=== PATIENT | female | born 1975 | race Caucasian/White ===

== ENCOUNTER 2025-03-23 10:37 | Inpatient (IN) | payer MEDICARE, MEDICAID, SELFPAY ==
--- NOTE | ~2025-03-23 | CT_ITS ---
CT HEAD NON-CONTRAST Clinical History: seizure Comparison: None Technique: Unenhanced axial images skull base to vertex Coronal, sagittal reformats CT images acquired with automatic exposure control for dose reduction DLP: 605 mGy-cm Findings: Sulci, ventricles: Unremarkable. No intracerebral hemorrhage. No evidence acute territorial infarct. No mass effect, midline shift. Bony calvarium intact. Visualized paranasal sinuses: Clear. Mastoid air cells: Clear. IMPRESSION: 1. No acute intracranial findings. Reviewed, dictated and finalized at location R. 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
[2025-03-23 10:46] VITALS: BP 135/95; PULSE 70; RESP 20; TEMP 36.8; O2SAT 100
[2025-03-23 10:51] VITALS: O2SAT 97
--- NOTE | 2025-03-23 11:43 | PC.NURSE ---
This nurse received a call from Shayy Laguerre from [place] about this pt to informed that this pt can not go back to [place] due to not medical stable enough. Pt is homeless. commissions coordinator contacted to assist.
[2025-03-23 11:46] VITALS: BP 133/80; PULSE 76; RESP 20; O2SAT 100
--- NOTE | 2025-03-23 11:49 | ECG_ITS ---
Test Date: 2025-03-23 12:11:52 Measurements Intervals Elbe Rate: 59 P: 48 SC: 152 QRS: 31 QRSD: 101 T: 49 QT: 417 QTc: 415 Interpretive Statements SINUS BRADYCARDIA POSSIBLE LEFT ATRIAL ENLARGEMENT BORDERLINE ECG No previous ECG available for comparison Electronically Signed On 03-23-2025 16:02:22 ANIMAL HANDLER by Randy Colbert D.O.
[2025-03-23 11:59] LABS: Hematocrit 34.6 % (37.0-47.0); Hemoglobin 11.5 g/dL (12.0-15.0); Immature Granulocyte Percent A 0.3 % (0-0.5); Lymphocytes Absolute Auto 2.24 K/mm3 (0.9-3.2); Mean Corpuscular HGB Conc 33.2 g/dl (32-36); Mean Corpuscular Hemoglobin 29.6 pg (26-34); Mean Corpuscular Volume 89.2 fl (80-100); Nucleated Red Blood Cells Absolute Auto 0.000 K/mm3 (0.0-0.012); Nucleated Red Blood Cells Perc 0.0 % (0.0-0.2); Platelet Count Result 340 k/mm3 (150-375); Red Blood Count 3.88 M/mm3 (4.2-5.4); White Blood Count 6.4 K/mm3 (4.5-10.0)
[2025-03-23 12:10] LABS: INR 1.1; Prothrombin Time 14.1 Seconds (11.1-14.7)
[2025-03-23 12:11] LABS: Partial Thromboplastin Time 29.9 Seconds (22.3-36.8)
--- NOTE | 2025-03-23 12:11 | ED.GENADULT ---
HPI - General Adult General Chief complaint: Seizure Stated complaint: seizure Time Seen by Provider: 03/23/25 11:14 History of Present Illness HPI narrative: 49-year-old female presenting to the emergency department for evaluation for having 2 seizures today. Patient reports she typically has seizures every 1-2 weeks. Patient is currently at [facility] for rehabilitation for methamphetamine. Patient reports she also has history alcohol abuse but has not had alcohol in approximately last 10 years. These are not alcohol withdrawal seizures. Patient does take topiramate and carbamazepine. patient reports she has been taking these medications. Patient is new to the area and is moving here from [place]. Patient states that her neurologist is not local. Patient states she has not had recent follow-up with Neurology. Patient is unsure how long her seizures lasted. Patient is alert orientated at time of initial evaluation. Patient reports she is having some chest discomfort. Patient denies any other complaints. Related Data Home Medications ?Medication ?Instructions ?Recorded ?Confirmed ?Last Taken ?Type buspirone 10 mg tablet 10 mg PO BID 03/23/25 03/23/25 03/23/25 08:00 History 10 mg buspirone 5 mg tablet 5 mg PO BID 03/23/25 03/23/25 03/20/25 08:00 History 5 mg carbamazepine (mood stabiliz) 200 400 mg PO Q12H 03/23/25 03/23/25 03/23/25 08:00 History mg capsule,extend release 12 400 mg hr(mood stabilizing) (Equetro) carbamazepine 200 mg 200 mg PO Q12H 03/23/25 03/23/25 03/23/25 History tablet,extended release,12 hr hydroxyzine HCl 25 mg tablet 25 mg PO Q4H PRN anxiety 03/23/25 03/23/25 03/23/25 08:00 History lurasidone 40 mg tablet 40 mg PO DAILY@0800 03/23/25 03/23/25 03/23/25 08:00 History 40 mg melatonin 5 mg capsule 5 mg PO QHS 03/23/25 03/23/25 Unknown History melatonin 5 mg tablet 5 mg PO HS 03/23/25 03/23/25 03/22/25 20:00 History 5 mg multivitamin 1 tablet PO DAILY PRN PATIENT 03/23/25 03/23/25 03/23/25 08:00 History REQUEST 1 tablet nicotine (polacrilex) 4 mg buccal 4 mg buccal Q1H PRN nicotine 03/23/25 03/23/25 03/23/25 08:00 History lozenge cravings 4 mg nicotine 21 mg/24 hr daily 1 patch transdermal DAILY 03/23/25 03/23/25 03/23/25 08:00 History transdermal patch 1 patch prazosin 1 mg capsule 1 mg PO QHS 03/23/25 03/23/25 Unknown History pregabalin 150 mg capsule 150 mg PO Q12H 03/23/25 03/23/25 Unknown History pregabalin 50 mg capsule 50 mg PO BID 03/23/25 03/23/25 03/23/25 08:00 History 50 mg quetiapine 200 mg tablet 200 mg PO QHS 03/23/25 03/23/25 03/22/25 20:00 History 200 mg topiramate 50 mg tablet 50 mg PO BID 03/23/25 03/23/25 03/23/25 08:00 History 50 mg topiramate 50 mg tablet 50 mg PO Q12H 03/23/25 03/23/25 Unknown History Allergies Allergy/AdvReac Type Severity Reaction Status Date / Time No Known Allergies Allergy Verified 03/23/25 17:52 Review of Systems Review of Systems: All systems reviewed & are unremarkable except as noted in HPI and below PMFSH Past Medical History Medical History Methamphetamine abuse Seizure disorder Social History Social History Smoking packs per day: 0.5 Smoking cigarettes per day: 10.0 Years smoked: 24 Smoking pack-years: 12.00 Smoking status: Former smoker Tobacco type: cigarettes and e-cigarettes/vaping Smoking end date: 03/02/25 Additional smoking assessment comments: NICOTINE PATCH Alcohol intake: never Substance use: former Substance use type: amphetamines Other substance usage details: CLEAN FROM METH SINCE 03/02/2025 Last use: 03/02/25 Lack of Transportation: No Lack of Food: Often True Current Housing: I Do Not Have Housing Concerned About Future Housing: No Difficulty Paying Gas/Electric Bills: No Difficulty Paying for Meds: YES Currently Unemployed: No Education: Trade/Vocational Certificate Difficulty w/ Childcare or Family Care: No Spiritual care concerns: Yes (ANXIOUS ABOUT LIFE PROBLEMS) Exam Narrative: APPEARANCE: Well appearing, no pain, no distress, well-nourished. HEAD: normocephalic, atraumatic. EYES: PERRLA/EOMI, conjunctivae clear. NOSE: Normal no drainage EARS:TMS clear with good light reflex. THROAT: Pharynx clear, no exudate. NECK: Supple. No adenopathy, no masses. RESPIRATORY: Airway patent, respirations nonlabored. Clear to auscultation bilaterally, no rales, rhonchi, wheezing. CARDIOVASCULAR: Regular rate and rhythm without murmurs rubs or gallops. ABDOMINAL: Soft, nontender, nondistended, normal bowel sounds MUSCULOSKELETAL: Moves all extremities. Strength/ROM intact, No edema, No calf tenderness. NEURO: Alert. Cranial nerves II through XII intact. Good gait. Good coordination SKIN: Warm, dry. Normal Color PSYCHIATRIC: Normal affect/mood. Course Vital Signs Vital signs: Vital Signs Temperature 98.2 F 03/23/25 10:46 Pulse Rate 70 03/23/25 10:46 Respiratory Rate 20 03/23/25 10:46 Blood Pressure 135/95 H 03/23/25 10:46 Pulse Oximetry 100 03/23/25 10:46 Oxygen Delivery Room Air 03/23/25 10:46 Temperature 98.2 F 03/23/25 10:46 Pulse Rate 63 03/23/25 15:28 Respiratory Rate 16 03/23/25 15:28 Blood Pressure 151/89 H 03/23/25 15:28 Pulse Oximetry 100 03/23/25 15:28 Oxygen Delivery Room Air 03/23/25 10:51 [facility] Narrative Medical decision making narrative: 41-year-old female presents emergency department for evaluation for 2 seizures today. Patient reports he typically has a seizure once weaker for 2 weeks but patient reports he has had 2 seizures today. Patient states she has been taking her medications as directed. Patient does not have a local primary care physician or local neurologist. Patient's workup shows no acute evidence of infection. Patient does sound complaint with her medications. I discussed the case with Neurology and patient will be admitted to the hospitalist. EEG is not available until Tuesday per Neurology. Case was discussed with hospitalist and they were comfortable the plan for admission. Patient was well-appearing at time of admission. Differential Diagnosis Differential Diagnosis: Subdural hematoma, subarachnoid hemorrhage, cephalopathy, medication noncompliance, seizure disorder, urinary tract infection pneumonia Lab Data MDM Lab Attestation statement: I personally reviewed the patient's lab results. 03/23/25 11:52 03/23/25 11:52 Labs: Lab Results 03/23/25 03/23/25 03/23/25 Range/Units 11:48 11:52 12:26 WBC 6.4 (4.5-10.0) K/mm3 RBC 3.88 L (4.2-5.4) M/mm3 Hgb 11.5 L (12.0-15.0) g/dL Hct 34.6 L (37.0-47.0) % MCV 89.2 (80-100) fl MCH 29.6 (26-34) pg MCHC 33.2 (32-36) g/dl RDW 13.8 (11.5-14.5) % Plt Count 340 (150-375) k/mm3 MPV 8.6 (7.4-10.4) fl Immature Gran % (Auto) 0.3 (0-0.5) % Neut % (Auto) 51.2 (45.5-73.1) % Lymph % (Auto) 35.1 (18.3-44.2) % Lassen % (Auto) 10.3 H (2.6-8.5) % Eos % (Auto) 2.3 (0-4.4) % Baso % (Auto) 0.8 (0.2-1.2) % Lymph # (Auto) 2.24 (0.9-3.2) K/mm3 Lassen # (Auto) 0.7 H (0.1-0.6) K/mm3 Eos # (Auto) 0.2 (0-0.3) K/mm3 Baso # (Auto) 0.1 (0.0-0.1) K/mm3 Abs Immat Gran (auto) 0.02 (0.00-0.031) K/mm3 Absolute Neuts (auto) 3.3 (1.3-6.7) K/mm3 Absolute Nucleated RBC 0.000 (0.0-0.012) K/mm3 Nucleated RBC % 0.0 (0.0-0.2) % PT 14.1 (11.1-14.7) Seconds INR 1.1 APTT 29.9 (22.3-36.8) Seconds Sodium 127 L (137-145) mmol/L Potassium 4.5 (3.4-5.0) mmol/L Chloride 98 (98-107) mmol/L Carbon Dioxide 25 (22-30) mmol/L Anion Gap 4 (4-12) mmol/L BUN 13 (7-17) mg/dL Creatinine 0.78 (0.7-1.0) mg/dL Estim Creat Clear Calc 84 ml/min Estimated GFR > 60 (59 - ) Glucose 85 (65-110) mg/dL Lactic Acid 0.8 (0.7-2.0) mmol/L Calcium 8.2 L (8.4-10.2) mg/dL Total Bilirubin 0.3 (0.2-1.3) mg/dL AST 36 (14-36) U/L ALT 25 (6-35) U/L Alkaline Phosphatase 102 (38-126) U/L Troponin I < 0.012 (0.000-0.034) ng/mL Total Protein 7.9 (6.3-8.2) g/dL Albumin 3.8 (3.5-5.1) g/dL Urine Color Yellow (Yellow) Urine Appearance Clear (Clear) Urine pH 7.5 (5.0-9.0) Ur Specific Milburn 1.009 (1.001-1.035) Urine Protein Negative (Negative) mg/dL Urine Glucose (UA) Negative (Negative) mg/dL Urine Ketones Negative (Negative) mg/dL Ur Blood (Man) Negative (Negative) Urine Nitrate Negative (Negative) Urine Bilirubin Negative (Negative) Urine Urobilinogen 0.2 (<2.0) mg/dL Leukocyte Esterase Rfl Trace H (Negative) [place]/UL Urine RBC 0-2 (0-2) /hpf Urine WBC 0-5 (0-3) /hpf Ur Squamous Epith Cells None seen (Few) /hpf Urine Bacteria None seen /hpf Urine Casts 0-2 POC Urine HCG, Qual (Negative) Urine Opiates Screen Negative (Negative) Urine Methadone Screen Negative (Negative) Ur Barbiturates Screen Negative (Negative) Carbamazepine Pending Topiramate Pending Ur Phencyclidine Scrn Negative (Negative) Ur Amphetamine Screen Negative (Negative) U Benzodiazepines Scrn Negative (Negative) Urine Cocaine Screen Negative (Negative) U Cannabinoids Screen Negative (Negative) 03/23/25 Range/Units 12:27 WBC (4.5-10.0) K/mm3 RBC (4.2-5.4) M/mm3 Hgb (12.0-15.0) g/dL Hct (37.0-47.0) % MCV (80-100) fl MCH (26-34) pg MCHC (32-36) g/dl RDW (11.5-14.5) % Plt Count (150-375) k/mm3 MPV (7.4-10.4) fl Immature Gran % (Auto) (0-0.5) % Neut % (Auto) (45.5-73.1) % Lymph % (Auto) (18.3-44.2) % Lassen % (Auto) (2.6-8.5) % Eos % (Auto) (0-4.4) % Baso % (Auto) (0.2-1.2) % Lymph # (Auto) (0.9-3.2) K/mm3 Lassen # (Auto) (0.1-0.6) K/mm3 Eos # (Auto) (0-0.3) K/mm3 Baso # (Auto) (0.0-0.1) K/mm3 Abs Immat Gran (auto) (0.00-0.031) K/mm3 Absolute Neuts (auto) (1.3-6.7) K/mm3 Absolute Nucleated RBC (0.0-0.012) K/mm3 Nucleated RBC % (0.0-0.2) % PT (11.1-14.7) Seconds INR APTT (22.3-36.8) Seconds Sodium (137-145) mmol/L Potassium (3.4-5.0) mmol/L Chloride (98-107) mmol/L Carbon Dioxide (22-30) mmol/L Anion Gap (4-12) mmol/L BUN (7-17) mg/dL Creatinine (0.7-1.0) mg/dL Estim Creat Clear Calc ml/min Estimated GFR (59 - ) Glucose (65-110) mg/dL Lactic Acid (0.7-2.0) mmol/L Calcium (8.4-10.2) mg/dL Total Bilirubin (0.2-1.3) mg/dL AST (14-36) U/L ALT (6-35) U/L Alkaline Phosphatase (38-126) U/L Troponin I (0.000-0.034) ng/mL Total Protein (6.3-8.2) g/dL Albumin (3.5-5.1) g/dL Urine Color (Yellow) Urine Appearance (Clear) Urine pH (5.0-9.0) Ur Specific Milburn (1.001-1.035) Urine Protein (Negative) mg/dL Urine Glucose (UA) (Negative) mg/dL Urine Ketones (Negative) mg/dL Ur Blood (Man) (Negative) Urine Nitrate (Negative) Urine Bilirubin (Negative) Urine Urobilinogen (<2.0) mg/dL Leukocyte Esterase Rfl (Negative) [place]/UL Urine RBC (0-2) /hpf Urine WBC (0-3) /hpf Ur Squamous Epith Cells (Few) /hpf Urine Bacteria /hpf Urine Casts POC Urine HCG, Qual Negative (Negative) Urine Opiates Screen (Negative) Urine Methadone Screen (Negative) Ur Barbiturates Screen (Negative) Carbamazepine Topiramate Ur Phencyclidine Scrn (Negative) Ur Amphetamine Screen (Negative) U Benzodiazepines Scrn (Negative) Urine Cocaine Screen (Negative) U Cannabinoids Screen (Negative) Imaging Data Radiologist's impression: ITS Impressions Head CT 03/23/25 12:08 IMPRESSION: 1. No acute intracranial findings. Discharge Plan Discharge Clinical Impression: Seizure disorder Patient Disposition: Still a Patient Condition: Serious
[2025-03-23 12:16] LABS: Alanine Aminotransferase 25 U/L (6-35); Albumin Level 3.8 g/dL (3.5-5.1); Alkaline Phosphatase 102 U/L (38-126); Anion Gap 4 mmol/L (4-12); Aspartate Amino Transferase 36 U/L (14-36); Bilirubin,Total 0.3 mg/dL (0.2-1.3); Blood Urea Nitrogen 13 mg/dL (7-17); Calcium 8.2 mg/dL (8.4-10.2); Carbon Dioxide 25 mmol/L (22-30); Chloride 98 mmol/L (98-107); Estimated CRCL calculation 84 ml/min; Estimated Glomerular Filt Rate > 60; Glucose 85 mg/dL (65-110); Potassium 4.5 mmol/L (3.4-5.0); Sodium 127 mmol/L (137-145); Total Protein 7.9 g/dL (6.3-8.2)
[2025-03-23 12:28] LABS: BEDSIDEPREGUCG Negative (Negative)
[2025-03-23 12:29] LABS: Troponin I < 0.012 ng/mL (0.000-0.034)
[2025-03-23 12:37] LABS: Add Urine Microscopic? YES; Appearance Urine Clear (Clear); Glucose Urine UA Negative (Negative); Leukocyte Esterase Ur Trace LEU/UL (Negative); Nitrate Urine Negative (Negative); Non Pathogenic Casts 0-2; Specific Grav Ur 1.009 (1.001-1.035)
[2025-03-23 13:50] LABS: Cannabinoid Screen Urine Negative (Negative)
[2025-03-23] MEDS: KETOROLAC 30 MG/ML VIAL (*BKC) IV PUSH (14:30)
[2025-03-23 15:28] VITALS: BP 151/89; PULSE 63; RESP 16; O2SAT 100
--- NOTE | 2025-03-23 15:28 | P.HP_ITS ---
H&P: HPI History of Present Illness Date/Time: 03/23/25 15:28 Chief Complaint: Seizures Narrative: 49 y/o F with PMH of methamphetamine use, seizure disorder, and remote history of alcohol abuse presents here with multiple seizures. The patient presents here from [facility] on 03/23 for further evaluation of seizure activity. She reports she had a seizure on Tuesday x1 and then had 2 seizures today. She reports the facility staff reported to her that the 1st one lasted for around 1 minute and the 2nd one lasted for a few minutes. Her seizures are tonic clonic. She was postictal after the 2nd seizure and arrived mildly confused. Now A&O x4. She reports her seizures previously have been precipitated by medication noncompliance or stress or introduction of a new medication/substance. She used to see a neurologist in [place], however has not seen them for some time. She reports a recent medication change, Seroquel was discontinued and she was placed on Latuda. She is currently at [facility] for rehab services for meth use, last use 03/02. Currently denies any injury, oral trauma, fever, chills, body aches, URI like symptoms, headache, focal numbness, focal weakness. She does report increased anxiety the due to concern she will not be able to go back to her rehab facility. She also reports a few days of constipation for which she took MiraLax last night without results. No further complaints. Initial VS at presentation: 98.2? F, HR 70, R 20, 135/95, and 100% on RA. ED workup showed: No leukocytosis, hemoglobin 11.5, normal coags, sodium 127, creatinine 0.78 and GFR >60, initial troponin negative, UA showed trace leuk esterase otherwise unremarkable. UDS negative. Carbamazepine and topiramate levels pending. Head CT showed no acute intracranial findings. Review of Systems Review of Systems: All systems reviewed & are unremarkable except as noted in HPI and below [facility] Past Medical History Medical History Methamphetamine abuse Seizure disorder Meds Home Medications and Allergies Home Medications ?Medication ?Instructions ?Recorded ?Confirmed ?Type carbamazepine 200 mg 200 mg PO Q12H 03/23/2510/10 History tablet,extended release,12 hr Allergies Allergy/AdvReac Type Severity Reaction Status Date / Time No Known Allergies Allergy Verified 03/23/25 10:53 Vital Signs Vital Signs - 24 hr 03/23/25 10:46 03/23/25 10:51 03/23/25 11:46 Temperature 98.2 F Pulse Rate 70 76 Respiratory Rate 20 20 Blood Pressure 135/95 H 133/80 Pulse Oximetry 100 97 100 Oxygen Delivery Room Air Room Air Exam Const: General: comfortable and no acute distress Other: , female, nontoxic appearance HENMT: Face/Nose/Sinus: Normal nares present Mouth: Yes moist mucous membranes Eyes: General: appearance normal, both eyes and all related structures Sclera: sclerae normal Pupils: Equal, round and reactive pupils present EOM: EOMs intact bilaterally Resp: Effort & Inspection: normal respiratory effort Auscultation: clear to auscultation bilaterally Cardio: Rate: regular rate Rhythm: regular rhythm Other: S1-S2 present without murmur, rub, ectopy GI: Other: Abdomen soft, nondistended, nontender. Normoactive bowel sounds in all quadrants. Skin: General skin exam: normal color and no rashes or lesions noted Wounds: no wounds Neuro: Speech: normal speech Motor exam (neuro): 5/5 motor strength present throughout Sensory Exam: normal sensation Other: A&O x4. No seizure-like activity. No dysarthria, facial droop, or focal deficits on exam. Extrem: General: normal to inspection Psych: Mental Status: mental status grossly normal Affect: Anxious affect present Other: Tearful, anxious related to concerns about being able to return to her rehab services. Otherwise good insight and judgment, very pleasant. Results Labs Labs: Short CBC 03/23/25 Range/Units 11:52 WBC 6.4 (4.5-10.0) K/mm3 Hgb 11.5 L (12.0-15.0) g/dL Hct 34.6 L (37.0-47.0) % Plt Count 340 (150-375) k/mm3 BMP 03/23/25 11:52 Sodium 127 L Potassium 4.5 Chloride 98 Carbon Dioxide 25 BUN 13 Creatinine 0.78 Glucose 85 Calcium 8.2 L Cardiac Enzymes 03/23/25 Range/Units 11:52 Troponin I < 0.012 (0.000-0.034) ng/mL Liver Function 03/23/25 Range/Units 11:52 Total Bilirubin 0.3 (0.2-1.3) mg/dL AST 36 (14-36) U/L ALT 25 (6-35) U/L Alkaline Phosphatase 102 (38-126) U/L Albumin 3.8 (3.5-5.1) g/dL Urine 03/23/25 Range/Units 12:26 Urine Color Yellow (Yellow) Urine Appearance Clear (Clear) Urine pH 7.5 (5.0-9.0) Ur Specific [place] 1.009 (1.001-1.035) Urine Protein Negative (Negative) mg/dL Urine Glucose (UA) Negative (Negative) mg/dL Quality VTE Prophylaxis VTE prophylaxis: mechanical ordered Assessment and Plan Assessment and plan (1) Seizure disorder: Code(s): G40.909 - Epilepsy, unspecified, not intractable, without status epilepticus Status: Acute Assessment and Plan: Patient has had 3 breakthrough seizures, one on Friday 03/16 and 2 the day of admission 03/23. she has a history of seizures, tonic clonic, no precipitating TBI and has been present for years. On topiramate and carbamazepine, reports compliance. Typically precipitated by stress, introduction of a new medication /substance, or noncompliance to her medications previously due to her methamphetamine use. Currently at [facility] for rehab, last use 03/02. no longer postictal. - continue carbamazepine and topiramate, awaiting further recommendations per Neurology - carbamazepine and topiramate levels pending - seizure precautions - no leukocytosis concerning for infection precipitating breakthrough seizures Plan Diet: heart healthy GI Prophylaxis: n/a DVT Prophylaxis: SCDs IV fluids: NS 100 mL/hr Lines/Tubes: pIV Code Status: full code Prior Studies I have reviewed the following patient records and this information was taken into consideration when formulating the assessment and plan.: previous labs, previous ER visits, previous hospitalizations and previous clinic visits Time Spent with Patient Time with patient: less than 45 minutes Hospitalist MIPS Advance Care Plan I have confirmed that the patient's Advanced Care Plan is present, code status is documented, or surrogate decision maker is listed in patient medical record.: Yes Medication Reconciliation I have utilized all available resources to obtain, update and review the patients current medications (includes all prescriptions, OTC, herbals, canna bis, and nutritional supplements).: Yes
--- NOTE | 2025-03-23 15:33 | WPCEDHO ---
ED Hand Off Checklist All vitals saved:y IV Site documented:y All med administrations documented:y Triage Note Triage Note Pt to ed co seizure activity. Pt 03/23/25 10:46 is from [place] for rehab, ALERT AND ORIENTED X4, has hx of seizure, last seizure was last Tuesday. Pt reports taking her medications regular as prescribed . Allergies No Known Allergies Allergy (Verified 03/23/25 10:53) Administered/Completed Medications Discontinued Medications Ketorolac Tromethamine (Ketorolac 30 Mg/Ml Vial (*Bkc)) 30 mg IV PUSH ONCE STA Stop: 03/23/25 14:20 Last Admin: 03/23/25 14:30 Dose: 30 mg Documented By: KAROL Notes 03/23/25 11:43 Nurse Note by Mirta Lima This nurse received a call from Shayy Laguerre from [place] about this pt to informed that this pt can not go back to [place] due to not medical stable enough. Pt is homeless. team coordinator contacted to assist. Initialized on 03/23/25 11:43 - END OF NOTE Interventions/Assessments IV / Saline Lock, Insert Start: 03/23/25 10:34 Freq: Status: Active Protocol: Document 03/23/25 12:14 KAROL (Rec: 03/23/25 12:14 KAROL [id number]) IV Assessment Peripheral Access Left Antecubital IV Catheter Access Initiated Before Arrival IV Insertion Date 03/23/25 Catheter Gauge 18 IV Site Assessment WNL IV Care and WNL Maintenance PA: Neurological Assessment Start: 03/23/25 10:34 Freq: Status: Active Protocol: Document 03/23/25 15:32 KAROL (Rec: 03/23/25 15:32 KESHAWN [id number]) Neurological Assessment Level of Alert,Awake Consciousness Arousable to Verbal Orientation Oriented to Person,Oriented to Place,Oriented to Time Neurological None Symptoms Hallucination Type None Unable to Redirect No Behavior Behavior Appropriate,Cooperative Patient Able to Comprehend Comprehension Memory Description Intact Ability to Maintain Normal Balance Facial Symmetry Symmetrical Speech Pattern Clear Ability to Swallow Normal Tongue Position Midline Gisel Coma Scale Eyes Open Verbal Oriented and Alert Motor Follows Commands Gisel Coma Total 15 Score Last Vital Signs Temperature 98.2 F 03/23/25 10:46 Pulse Rate 63 03/23/25 15:28 Respiratory Rate 16 03/23/25 15:28 Pulse Oximetry 100 03/23/25 15:28 Blood Pressure 151/89 H 03/23/25 15:28 Blood Pressure Mean 109 03/23/25 15:28 Blood Pressure Position Sitting 03/23/25 15:28 Oxygen Delivery Room Air 03/23/25 10:51 Weight 81.7 kg 03/23/25 10:46 Last Result - Abnormals Only RBC 3.88 M/mm3 (4.2-5.4) L 03/23/25 11:52 Hgb 11.5 g/dL (12.0-15.0) L 03/23/25 11:52 Hct 34.6 % (37.0-47.0) L 03/23/25 11:52 Mccormick % (Auto) 10.3 % (2.6-8.5) H 03/23/25 11:52 Mccormick # (Auto) 0.7 K/mm3 (0.1-0.6) H 03/23/25 11:52 Sodium 127 mmol/L (137-145) L 03/23/25 11:52 Calcium 8.2 mg/dL (8.4-10.2) L 03/23/25 11:52 Leukocyte Esterase Rfl Trace [place]/UL (Negative) H 03/23/25 12:26 Most Recent Suicide Severity Rating Suicide Severity Rating NO RISK INDICATED 03/23/25 10:46
[2025-03-23 16:37] VITALS: BMI 28.2
[2025-03-23] MEDS: SODIUM CHLORIDE 0.9% IV 1,000 ML 100 ML IV CONT (16:46)
--- NOTE | 2025-03-23 18:09 | ADMGEN ---
This patient, Mable Arechiga, was admitted to Medical Room 341-01. Patient/family oriented to hospital policies and general routines including ID bracelet, bed and alarms, visiting hours, pain management, procedures, bathroom and other care routines, personal items, smoking policy, room service/diet, and visiting hours. Information on how to activate the Rapid Response Team has been discussed. Patient/Family are encouraged to report perceived risks to care and to ask questions if they do not understand what they are told or what they should do.
[2025-03-23 20:00] VITALS: PULSE 57; PULSE 66; RESP 18; O2SAT 97
[2025-03-23] MEDS: DOCUSATE SODIUM 100 MG CAPSULE PO (21:31)
[2025-03-23] MEDS: hydrOXYzine HCL 12.5 MG TABLET PO (21:31)
[2025-03-23] MEDS: ACETAMINOPHEN 325 MG TABLET 650 MG PO (21:31)
[2025-03-23] MEDS: ONDANSETRON INJ 4 MG/2 ML VIAL IV PUSH (21:34)
[2025-03-23 21:50] VITALS: BP 125/95; PULSE 57; RESP 18; TEMP 37; O2SAT 97
[2025-03-23] MEDS: PREGABALIN (*CRX) 75 MG CAPSULE 150 MG PO (22:36)
[2025-03-23] MEDS: PRAZOSIN HCL 1 MG CAPSULE PO (22:36)
[2025-03-23] MEDS: TOPIRAMATE 25 MG TABLET 50 MG PO (22:37)
[2025-03-24] VITALS (10 sets, daily range): BP systolic 100–116; BP diastolic 64–75; PULSE 51–69; RESP 16–20; TEMP 36.1–36.8; O2SAT 96–100
[2025-03-24] MEDS: ONDANSETRON INJ 4 MG/2 ML VIAL IV PUSH ×2 (04:52→16:43)
[2025-03-24] MEDS: ACETAMINOPHEN 325 MG TABLET 650 MG PO ×3 (04:52→20:40)
[2025-03-24 06:33] LABS: Hematocrit 35.1 % (37.0-47.0); Hemoglobin 11.6 g/dL (12.0-15.0); Immature Granulocyte Percent A 0.2 % (0-0.5); Lymphocytes Absolute Auto 2.78 K/mm3 (0.9-3.2); Mean Corpuscular HGB Conc 33.0 g/dl (32-36); Mean Corpuscular Hemoglobin 29.3 pg (26-34); Mean Corpuscular Volume 88.6 fl (80-100); Nucleated Red Blood Cells Absolute Auto 0.000 K/mm3 (0.0-0.012); Nucleated Red Blood Cells Perc 0.0 % (0.0-0.2); Platelet Count Result 334 k/mm3 (150-375); Red Blood Count 3.96 M/mm3 (4.2-5.4); White Blood Count 6.3 K/mm3 (4.5-10.0)
[2025-03-24 06:55] LABS: Anion Gap 3 mmol/L (4-12); Blood Urea Nitrogen 13 mg/dL (7-17); Calcium 8.2 mg/dL (8.4-10.2); Carbon Dioxide 22 mmol/L (22-30); Chloride 101 mmol/L (98-107); Estimated CRCL calculation 81 ml/min; Estimated Glomerular Filt Rate > 60; Glucose 84 mg/dL (65-110); Potassium 3.8 mmol/L (3.4-5.0); Sodium 126 mmol/L (137-145)
[2025-03-24 08:08] LABS: Carbamazepine (Tegretol) 8.5 ug/mL (4.0-12.0)
[2025-03-24] MEDS: PREGABALIN (*CRX) 75 MG CAPSULE 150 MG PO ×2 (09:43→20:39)
[2025-03-24] MEDS: DOCUSATE SODIUM 100 MG CAPSULE PO ×2 (09:43→20:39)
[2025-03-24] MEDS: TOPIRAMATE 25 MG TABLET 50 MG PO ×2 (09:43→20:39)
[2025-03-24] MEDS: NICOTINE (*PBKC) 14 MG PATCH 1 PATCH TRANSDERM (09:43)
[2025-03-24 09:44] LABS: Magnesium 1.6 mg/dL (1.6-2.3)
[2025-03-24] MEDS: LURASIDONE HCL 40 MG TABLET PO (09:44)
[2025-03-24] MEDS: SODIUM CHLORIDE 0.9% IV 1,000 ML 100 ML IV CONT (12:31)
--- NOTE | 2025-03-24 13:01 | WPDNEURCNPN ---
Assessment and Plan Assessment and plan (1) Seizure disorder: Code(s): G40.909 - Epilepsy, unspecified, not intractable, without status epilepticus Status: Acute Plan 1. Recurrent seizures with ongoing history of seizure disorder for which at present in this area she does not have any neurologist, while medications are being continued as such an EEG will be obtained for further recommendations. Initial CT scan of the head was negative for any gross bleed or space-occupying lesion. Patient is already in [facility], once the EEG obtained further recommendation will be given accordingly. Consult date: 03/24/25 HPI: Mable Arechiga is a 49 year old female admitted to the hospital through the emergency room with the information that she has had 2 seizures on the day of visit to the ER, prior to this particular incident she had been experiencing seizures every 1 to 2 weeks patient is reportedly at [facility] for rehabilitation for metamphetamine use disorder.. Patient does have ongoing history of alcohol abuse as well though she has not had alcohol in approximately last 10 years. Patient does take topiramate and carbamazepine and reported that she has been taking these medications regularly patient at present is new to this area and moving here from [place]. She has not had any recent follow-up with the neurologist. Her medication at the time of visit included 1. BuSpar 10mg b.i.d. and 5mg b.i.d. 2. Carbamazepine 400mg q.12 hours and 200mg q.12 hours that is total of 600mg q.12 hours 3. Hydroxyzine 25mg p.r.n. for anxiety 4. Low residue own 40mg daily . 5. Melatonin 5mg at night 6. Nicotine 4mg buccal Q 1hours p.r.n. for nicotine cravings and nicotine 21mg per 24hours patch transdermal as well. 7. Prazosin 1mg p.o. at HS 8. Pregabalin 150mg q.12 hours and 50mg b.i.d. 9. Seroquel 200mg at night 10. Topiramate 50mg b.i.d. patient is not allergic to any medication. In the past patient has been treated for metamphetamine abuse and seizure disorder. She has history of years 24 smoking but at present former smoker and also has no history of alcohol intake. Initial exam in the emergency room was grossly nonfocal, vital signs were normal except blood pressure of 135/95, CBC was normal, BMP with sodium of 127, drug screen negative, CT scan of the head negative for the bleed or space-occupying lesion, Review of Systems Review of Systems: All systems reviewed & are unremarkable except as noted in HPI and below PMFSH Past Medical History Medical History Methamphetamine abuse Seizure disorder Social History Social History Smoking packs per day: 0.5 Smoking cigarettes per day: 10.0 Years smoked: 24 Smoking pack-years: 12.00 Smoking status: Former smoker Tobacco type: cigarettes and e-cigarettes/vaping Smoking end date: 03/02/25 Additional smoking assessment comments: NICOTINE PATCH Alcohol intake: never Substance use: former Substance use type: amphetamines Other substance usage details: CLEAN FROM METH SINCE 03/02/2025 Last use: 03/02/25 Lack of Transportation: No Lack of Food: Often True Current Housing: I Do Not Have Housing Concerned About Future Housing: No Difficulty Paying Gas/Electric Bills: No Difficulty Paying for Meds: YES Currently Unemployed: No Education: Trade/Vocational Certificate Difficulty w/ Childcare or Family Care: No Spiritual care concerns: Yes (ANXIOUS ABOUT LIFE PROBLEMS) Meds Home Medications and Allergies Home Medications ?Medication ?Instructions ?Recorded ?Confirmed ?Type buspirone 10 mg tablet 10 mg PO BID 03/23/25 03/23/25 History buspirone 5 mg tablet 5 mg PO BID 03/23/25 03/23/25 History carbamazepine (mood stabiliz) 200 400 mg PO Q12H 03/23/25 03/23/25 History mg capsule,extend release 12 hr(mood stabilizing) (Equetro) carbamazepine 200 mg 200 mg PO Q12H 03/23/25 03/23/25 History tablet,extended release,12 hr hydroxyzine HCl 25 mg tablet 25 mg PO Q4H PRN anxiety 03/23/25 03/23/25 History lurasidone 40 mg tablet 40 mg PO DAILY@0800 03/23/25 03/23/25 History melatonin 5 mg capsule 5 mg PO QHS 03/23/25 03/23/25 History melatonin 5 mg tablet 5 mg PO HS 03/23/25 03/23/25 History multivitamin 1 tablet PO DAILY PRN PATIENT 12/06/25 12/06/25 History REQUEST nicotine (polacrilex) 4 mg buccal 4 mg buccal Q1H PRN nicotine 03/23/25 03/23/25 History lozenge cravings nicotine 21 mg/24 hr daily 1 patch transdermal DAILY 03/23/25 03/23/25 History transdermal patch prazosin 1 mg capsule 1 mg PO QHS 03/23/25 03/23/25 History pregabalin 150 mg capsule 150 mg PO Q12H 03/23/25 03/23/25 History pregabalin 50 mg capsule 50 mg PO BID 03/23/25 03/23/25 History quetiapine 200 mg tablet 200 mg PO QHS 03/23/25 03/23/25 History topiramate 50 mg tablet 50 mg PO BID 03/23/25 03/23/25 History topiramate 50 mg tablet 50 mg PO Q12H 03/23/25 03/23/25 History Allergies Allergy/AdvReac Type Severity Reaction Status Date / Time No Known Allergies Allergy Verified 03/23/25 17:52 Vital Signs Vital Signs - 24 hr 03/23/25 15:28 03/23/25 20:00 03/23/25 20:00 Temperature Pulse Rate 63 57 L 66 Respiratory Rate 16 18 Blood Pressure 151/89 H Pulse Oximetry 100 97 Oxygen Delivery Room Air 03/23/25 21:50 03/24/25 00:00 03/24/25 04:00 Temperature 37.0 C Pulse Rate 57 L 69 59 L Respiratory Rate 18 Blood Pressure 125/95 H Pulse Oximetry 97 Oxygen Delivery 03/24/25 06:00 03/24/25 08:00 03/24/25 08:00 Temperature 36.8 C Pulse Rate 51 L 64 Respiratory Rate 20 Blood Pressure 104/69 Pulse Oximetry 97 Oxygen Delivery Room Air 03/24/25 08:58 03/24/25 12:00 Temperature Pulse Rate 67 Respiratory Rate Blood Pressure Pulse Oximetry 98 Oxygen Delivery Room Air Exam Narrative: today revealed her to be awake alert in no obvious acute distress, his speech was not dysphasic not dysarthric not dysphonic, she was awake alert and was aware of her hospitalization and was also interested in knowing her medications I am being given to make sure there is no unwanted changes. Head was normocephalic with no cranial bruits, neck was supple with no cervical bruit no thyromegaly no lymphadenopathy, heart was regular with no murmur, lungs were clear to auscultation with no rhonchi or crepitations, abdomen was soft nontender with normal bowel sounds, neurologically she was awake alert aware of being in the hospital his speech was not dysphasic not dysarthric not dysphonic, pupils are round regular, is the vision were full in all 4 quadrants, extraocular movements are full with no nystagmus, facial sensation was intact, face was symmetrical, tongue was in midline, all of the midline, motor examination revealed her to have normal strength and tone with no evidence of abnormal tone and no drift against gravity flexes were symmetrical and plantars were downgoing. Results Labs 03/24/25 05:26 03/24/25 05:26 Labs: Short CBC 03/24/25 Range/Units 05:26 WBC 6.3 (4.5-10.0) K/mm3 Hgb 11.6 L (12.0-15.0) g/dL Hct 35.1 L (37.0-47.0) % Plt Count 334 (150-375) k/mm3 [facility] 03/24/25 05:26 Sodium 126 L Potassium 3.8 Chloride 101 Carbon Dioxide 22 BUN 13 Creatinine 0.81 Glucose 84 Calcium 8.2 L
[2025-03-24] MEDS: NICOTINE (*PBKC) 4 MG GUM PO ×2 (14:43→17:18)
[2025-03-24] MEDS: DICLOFENAC SODIUM 1% 100 GM GEL (*BKC) 1 APPLIC TOPICAL ×2 (14:43→20:39)
--- NOTE | 2025-03-24 15:52 | PM.IMPN2 ---
Assessment and Plan Assessment and Plan (1) Seizure disorder: Code(s): G40.909 - Epilepsy, unspecified, not intractable, without status epilepticus Status: Acute Assessment and Plan: Patient has had 3 breakthrough seizures, one on Friday 03/16 and 2 the day of admission 03/23. she has a history of seizures, tonic clonic, no precipitating TBI and has been present for years. On topiramate and carbamazepine, reports compliance. Typically precipitated by stress, introduction of a new medication /substance, or noncompliance to her medications previously due to her methamphetamine use. Currently at [facility] for rehab, last use 03/02. no longer postictal. - continue carbamazepine and topiramate, awaiting further recommendations per Neurology - carbamazepine and topiramate levels pending - seizure precautions - no leukocytosis concerning for infection precipitating breakthrough seizures Plan patient with recurrent seizures seen by the neurologist recommended to [facility], to further evaluate patient will need EEG, will follow up and further recommendation to follow. patient is also complaints of constipation, patient was give miralax and Colace, will monitor. Diet: heart healthy GI Prophylaxis: n/a DVT Prophylaxis: SCDs IV fluids: NS 100 mL/hr Lines/Tubes: pIV Code Status: full code Subjective Date/time seen: 03/24/25 15:52 Interval history: Seizures H&P-Narrative: 49 y/o F with PMH of methamphetamine use, seizure disorder, and remote history of alcohol abuse presents here with multiple seizures. The patient presents here from [facility] on 03[facility]23 for further evaluation of seizure activity. She reports she had a seizure on Tuesday x1 and then had 2 seizures today. She reports the facility staff reported to her that the 1st one lasted for around 1 minute and the 2nd one lasted for a few minutes. Her seizures are tonic clonic. She was postictal after the 2nd seizure and arrived mildly confused. Now A&O x4. She reports her seizures previously have been precipitated by medication noncompliance or stress or introduction of a new medication/substance. She used to see a neurologist in [place], however has not seen them for some time. She reports a recent medication change, Seroquel was discontinued and she was placed on Latuda. She is currently at [facility] for rehab services for meth use, last use 03/02. Currently denies any injury, oral trauma, fever, chills, body aches, URI like symptoms, headache, focal numbness, focal weakness. She does report increased anxiety the due to concern she will not be able to go back to her rehab facility. She also reports a few days of constipation for which she took MiraLax last night without results. No further complaints. Initial VS at presentation: 98.2? F, HR 70, R 20, 135/95, and 100% on RA. ED workup showed: No leukocytosis, hemoglobin 11.5, normal coags, sodium 127, creatinine 0.78 and GFR >60, initial troponin negative, UA showed trace leuk esterase otherwise unremarkable. UDS negative. Carbamazepine and topiramate levels pending. Head CT showed no acute intracranial findings. patient with recurrent seizures seen by the neurologist recommended to [facility], to further evaluate patient will need EEG, will follow up and further recommendation to follow. patient is also complaints of constipation, patient was give miralax and Colace, will monitor. Review of Systems Review of Systems: All systems reviewed & are unremarkable except as noted in HPI and below Exam Narrative: Patient is comfortable, NAD HEENT: eyes are clear and none icteric LUNGS:CTA HEART: RR S1S2 ABD: BS+, Soft and nontender Lower extremities: no edema SKIN: nonjaundiced Neuro: grossly intact. Objective Data Vital Signs Vital Signs: Vital Signs - 24 hr 03/23/25 20:00 03/23/25 20:00 03/23/25 21:50 Temperature 37.0 C Pulse Rate 57 L 66 57 L Respiratory Rate 18 18 Blood Pressure 125/95 H Pulse Oximetry 97 97 Oxygen Delivery Room Air 03/24/25 00:00 03/24/25 04:00 03/24/25 06:00 Temperature 36.8 C Pulse Rate 69 59 L 51 L Respiratory Rate 20 Blood Pressure 104/69 Pulse Oximetry 97 Oxygen Delivery 03/24/25 08:00 03/24/25 08:00 03/24/25 08:58 Temperature Pulse Rate 64 Respiratory Rate Blood Pressure Pulse Oximetry 98 Oxygen Delivery Room Air Room Air 03/24/25 12:00 03/24/25 13:36 Temperature 36.4 C Pulse Rate 67 56 L Respiratory Rate 16 Blood Pressure 116/75 Pulse Oximetry 100 Oxygen Delivery Intake/Output Intake/Output: Intake & Output 12/04/25 03/22/25 03/23/25 03/24/25 23:59 23:59 23:59 23:59 Intake Total 240 1480 Output Total 1 Balance 240 1479 Meds/Results Medications: Active Medications Generic Name Dose Route Start Last Admin Trade Name Freq PRN Reason Stop Dose Admin Acetaminophen 650 mg 03/23/25 15:36 03/24/25 12:30 Acetaminophen 325 Mg Tablet PO 650 mg Q6H PRN Administration Mild Pain (1-3) or Fever Buspirone HCl 10 mg 03/24/25 09:00 03/24/25 09:43 Buspirone Hcl 10 Mg Tablet PO 10 mg BID CESAR Administration Carbamazepine 400 mg 03/24/25 09:00 03/24/25 09:42 Carbamazepine Xr 200 Mg Tab.Er.12h PO 400 mg Q12HR CESAR Administration Diclofenac Sodium 1 applic 03/24/25 17:00 03/24/25 14:43 Diclofenac Sodium 1% 100 Gm Gel (*Bkc) TOPICAL 1 applic QID CESAR Administration Docusate Sodium 100 mg 03/23/25 21:00 03/24/25 09:43 Docusate Sodium 100 Mg Capsule PO 100 mg Q12HR CESAR Administration Hydroxyzine HCl 25 mg 03/23/25 21:54 03/24/25 11:21 Hydroxyzine Hcl 25 Mg Tablet PO 25 mg Q4H PRN Administration Anxiety Sodium Chloride 1,000 mls @ 100 mls/hr 03/23/25 15:40 03/24/25 12:31 Normal Saline Iv IV CONT 100 mls/hr .Q10H CESAR Administration Lurasidone HCl 40 mg 03/24/25 08:00 03/24/25 09:44 Lurasidone Hcl 40 Mg Tablet PO 40 mg DAILY@0800 CESAR Administration Melatonin 5 mg 03/24/25 21:00 Melatonin 5 Mg Tablet PO QHS CESAR Multivitamins Therapeutic 1 tablet 03/23/25 21:54 Multivitamins Therapeutic Tab (*Bkc) PO DAILY PRN PATIENT REQUEST Nicotine 1 patch 03/24/25 09:00 03/24/25 09:43 Nicotine (*Pbkc) 14 Mg Patch TRANSDERM 1 patch DAILY CESAR Administration Nicotine Polacrilex 4 mg 03/23/25 22:26 03/24/25 14:43 Nicotine (*Pbkc) 4 Mg Gum PO 4 mg Q1H PRN Administration Nicotine Cravings Ondansetron HCl 4 mg 03/23/25 14:54 03/24/25 04:52 Ondansetron Inj 4 Mg/2 Ml Vial IV PUSH 4 mg Q4H PRN Administration Nausea Polyethylene Glycol 17 gm 03/23/25 15:35 03/24/25 09:42 Polyethylene Glycol 3350 17 Gm Powd.Pack PO 17 gm QAM CESAR Administration Prazosin HCl 1 mg 03/23/25 21:00 03/23/25 22:36 Prazosin Hcl 1 Mg Capsule PO 1 mg QHS CESAR Administration Pregabalin 150 mg 03/23/25 21:00 03/24/25 09:43 Pregabalin (*Crx) 75 Mg Capsule PO 150 mg Q12H CESAR Administration Quetiapine Fumarate 200 mg 03/24/25 21:00 Quetiapine Fumarate 100 Mg Tablet PO QHS CESAR Topiramate 50 mg 03/23/25 21:00 03/24/25 09:43 Topiramate 25 Mg Tablet PO 50 mg Q12H CESAR Administration Radiology Results: ITS Impressions Head CT 03/23/25 12:08 IMPRESSION: 1. No acute intracranial findings. Labs Labs: Laboratory Results - last 24 hr 03/23/25 03/24/25 11:48 05:26 WBC 6.3 RBC 3.96 L Hgb 11.6 L Hct 35.1 L MCV 88.6 MCH 29.3 MCHC 33.0 RDW 13.4 Plt Count 334 MPV 8.9 Immature Gran % (Auto) 0.2 Neut % (Auto) 41.2 L Lymph % (Auto) 44.0 [place] % (Auto) 10.8 H Eos % (Auto) 3.2 Baso % (Auto) 0.6 Lymph # (Auto) 2.78 [place] # (Auto) 0.7 H Eos # (Auto) 0.2 Baso # (Auto) 0.0 Abs Immat Gran (auto) 0.01 Absolute Neuts (auto) 2.6 Absolute Nucleated RBC 0.000 Nucleated RBC % 0.0 Sodium 126 L Potassium 3.8 Chloride 101 Carbon Dioxide 22 Anion Gap 3 L BUN 13 Creatinine 0.81 Estim Creat Clear Calc 81 Estimated GFR > 60 Glucose 84 Calcium 8.2 L Magnesium 1.6 Carbamazepine 8.5 Quality VTE Prophylaxis VTE prophylaxis: mechanical ordered
[2025-03-24] MEDS: PRAZOSIN HCL 1 MG CAPSULE PO (20:39)
[2025-03-24] MEDS: MELATONIN 5 MG TABLET PO (20:39)
[2025-03-25] VITALS (9 sets, daily range): BP systolic 98–123; BP diastolic 50–84; PULSE 52–70; RESP 16–18; TEMP 36.1–37.3; O2SAT 97–98
[2025-03-25] MEDS: SODIUM CHLORIDE 0.9% IV 1,000 ML 100 ML IV CONT ×2 (01:46→13:29)
[2025-03-25] MEDS: NICOTINE (*PBKC) 4 MG GUM PO ×4 (01:49→20:43)
[2025-03-25 05:31] LABS: Hematocrit 34.8 % (37.0-47.0); Hemoglobin 11.2 g/dL (12.0-15.0); Mean Corpuscular HGB Conc 32.2 g/dl (32-36); Mean Corpuscular Hemoglobin 29.2 pg (26-34); Mean Corpuscular Volume 90.6 fl (80-100); Platelet Count Result 295 k/mm3 (150-375); Red Blood Count 3.84 M/mm3 (4.2-5.4); White Blood Count 5.2 K/mm3 (4.5-10.0)
[2025-03-25 05:59] LABS: Alanine Aminotransferase 20 U/L (6-35); Albumin Level 3.4 g/dL (3.5-5.1); Alkaline Phosphatase 92 U/L (38-126); Anion Gap 3 mmol/L (4-12); Aspartate Amino Transferase 25 U/L (14-36); Bilirubin,Total 0.4 mg/dL (0.2-1.3); Blood Urea Nitrogen 17 mg/dL (7-17); Calcium 8.3 mg/dL (8.4-10.2); Carbon Dioxide 23 mmol/L (22-30); Chloride 105 mmol/L (98-107); Estimated CRCL calculation 66 ml/min; Estimated Glomerular Filt Rate 59; Glucose 80 mg/dL (65-110); Magnesium 1.7 mg/dL (1.6-2.3); Potassium 4.3 mmol/L (3.4-5.0); Sodium 131 mmol/L (137-145); Total Protein 7.2 g/dL (6.3-8.2)
[2025-03-25] MEDS: ACETAMINOPHEN 325 MG TABLET 650 MG PO (06:25)
[2025-03-25] MEDS: TOPIRAMATE 25 MG TABLET 50 MG PO ×2 (09:26→20:43)
[2025-03-25] MEDS: PREGABALIN (*CRX) 75 MG CAPSULE 150 MG PO ×2 (09:26→20:42)
[2025-03-25] MEDS: DOCUSATE SODIUM 100 MG CAPSULE PO ×2 (09:26→20:42)
[2025-03-25] MEDS: LURASIDONE HCL 40 MG TABLET PO (09:26)
[2025-03-25] MEDS: DICLOFENAC SODIUM 1% 100 GM GEL (*BKC) 1 APPLIC TOPICAL ×4 (09:27→20:41)
[2025-03-25] MEDS: NICOTINE (*PBKC) 14 MG PATCH 1 PATCH TRANSDERM (09:27)
--- NOTE | 2025-03-25 15:51 | P.PNIM_ITS ---
Assessment and Plan Assessment and Plan (1) Seizure disorder: Code(s): G40.909 - Epilepsy, unspecified, not intractable, without status epilepticus Status: Acute Assessment and Plan: Patient has had 3 breakthrough seizures, one on Friday 03/16 and 2 the day of admission 03/23. she has a history of seizures, tonic clonic, no precipitating TBI and has been present for years. On topiramate and carbamazepine, reports compliance. Typically precipitated by stress, introduction of a new medication /substance, or noncompliance to her medications previously due to her methamphetamine use. Currently at [facility] for rehab, last use 03/02. no longer postictal. - continue carbamazepine and topiramate, awaiting further recommendations per Neurology - carbamazepine and topiramate levels pending - seizure precautions - no leukocytosis concerning for infection precipitating breakthrough seizures Plan patient with recurrent seizures seen by the neurologist recommended to [facility], to further evaluate patient will need EEG, EEG is pending, she denies any seizures while in the hospital, will follow up and further recommendation to follow. patient is also complaints of constipation, patient was given miralax and Colace no relief, will give suppository today and monitor Diet: heart healthy GI Prophylaxis: n/a DVT Prophylaxis: SCDs IV fluids: NS 100 mL/hr Lines/Tubes: pIV Code Status: full code Subjective Date/time seen: 03/25/25 15:51 Interval history: Seizures H&P-Narrative: 49 y/o F with PMH of methamphetamine use, seizure disorder, and remote history of alcohol abuse presents here with multiple seizures. The patient presents here from [facility] on 03/23 for further evaluation of seizure activity. She reports she had a seizure on Tuesday x1 and then had 2 seizures today. She reports the facility staff reported to her that the 1st one lasted for around 1 minute and the 2nd one lasted for a few minutes. Her seizures are tonic clonic. She was postictal after the 2nd seizure and arrived mildly confused. Now A&O x4. She reports her seizures previously have been precipitated by medication noncompliance or stress or introduction of a new medication/substance. She used to see a neurologist in [place], however has not seen them for some time. She reports a recent medication change, Seroquel was discontinued and she was placed on Latuda. She is currently at [facility] for rehab services for meth use, last use 03/02. Currently denies any injury, oral trauma, fever, chills, body aches, URI like symptoms, headache, focal numbness, focal weakness. She does report increased anxiety the due to concern she will not be able to go back to her rehab facility. She also reports a few days of constipation for which she took MiraLax last night without results. No further complaints. Initial VS at presentation: 98.2? F, HR 70, R 20, 135/95, and 100% on RA. ED workup showed: No leukocytosis, hemoglobin 11.5, normal coags, sodium 127, creatinine 0.78 and GFR >60, initial troponin negative, UA showed trace leuk esterase otherwise unremarkable. UDS negative. Carbamazepine and topiramate levels pending. Head CT showed no acute intracranial findings. patient with recurrent seizures seen by the neurologist recommended to [facility], to further evaluate patient will need EEG, EEG is pending, she denies any seizures while in the hospital, will follow up and further recommendation to follow. patient is also complaints of constipation, patient was given miralax and Colace no relief, will give suppository today and monitor Review of Systems Review of Systems: All systems reviewed & are unremarkable except as noted in HPI and below Exam Narrative: Patient is comfortable, NAD HEENT: eyes are clear and none icteric LUNGS:CTA HEART: RR S1S2 ABD: BS+, Soft and nontender Lower extremities: no edema SKIN: nonjaundiced Neuro: grossly intact. Objective Data Vital Signs Vital Signs: Vital Signs - 24 hr 03/24/25 16:00 03/24/25 20:00 03/24/25 20:00 Temperature Pulse Rate 67 67 62 Respiratory Rate 16 Blood Pressure Pulse Oximetry 100 Oxygen Delivery Room Air 03/24/25 22:00 03/25/25 00:00 03/25/25 04:00 Temperature 36.1 C L Pulse Rate 67 63 58 L Respiratory Rate 18 Blood Pressure 100/64 Pulse Oximetry 96 Oxygen Delivery 03/25/25 06:00 03/25/25 08:00 03/25/25 09:25 Temperature 36.1 C L Pulse Rate 52 L 58 L Respiratory Rate 18 Blood Pressure 98/56 L Pulse Oximetry 98 Oxygen Delivery Room Air 03/25/25 12:00 03/25/25 14:00 Temperature 37.3 C Pulse Rate 61 70 Respiratory Rate 16 Blood Pressure 123/84 Pulse Oximetry 98 Oxygen Delivery Intake/Output Intake/Output: Intake & Output 03/22/25 03/23/25 03/24/25 03/25/25 23:59 23:59 23:59 23:59 Intake Total 240 3940 2170 Output Total 1 600 Balance 240 3939 1570 Meds/Results Medications: Active Medications Generic Name Dose Route Start Last Admin Trade Name Freq PRN Reason Stop Dose Admin Acetaminophen 650 mg 03/23/25 15:36 03/25/25 06:25 Acetaminophen 325 Mg Tablet PO 650 mg Q6H PRN Administration Mild Pain (1-3) or Fever Bisacodyl 10 mg 03/25/25 14:10 Bisacodyl 10 Mg Suppository RECTAL QAM PRN Constipation Buspirone HCl 10 mg 03/24/25 09:00 03/25/25 09:26 Buspirone Hcl 10 Mg Tablet PO 10 mg BID CESAR Administration Carbamazepine 400 mg 03/24/25 09:00 03/25/25 09:26 Carbamazepine Xr 200 Mg Tab.Er.12h PO 400 mg Q12HR CESAR Administration Diclofenac Sodium 1 applic 03/24/25 17:00 03/25/25 13:30 Diclofenac Sodium 1% 100 Gm Gel (*Bkc) TOPICAL 1 applic QID CESAR Administration Docusate Sodium 100 mg 03/23/25 21:00 03/25/25 09:26 Docusate Sodium 100 Mg Capsule PO 100 mg Q12HR CESRA Administration Hydroxyzine HCl 25 mg 03/23/25 21:54 03/25/25 13:29 Hydroxyzine Hcl 25 Mg Tablet PO 25 mg Q4H PRN Administration Anxiety Lurasidone HCl 40 mg 03/24/25 08:00 03/25/25 09:26 Lurasidone Hcl 40 Mg Tablet PO 40 mg DAILY@0800 CESAR Administration Melatonin 5 mg 03/24/25 21:00 03/24/25 20:39 Melatonin 5 Mg Tablet PO 5 mg QHS CESAR Administration Multivitamins Therapeutic 1 tablet 03/23/25 21:54 Multivitamins Therapeutic Tab (*Bkc) PO DAILY PRN PATIENT REQUEST Nicotine 1 patch 03/24/25 09:00 03/25/25 09:27 Nicotine (*Pbkc) 14 Mg Patch TRANSDERM 1 patch DAILY CESAR Administration Nicotine Polacrilex 4 mg 03/23/25 22:26 03/25/25 13:29 Nicotine (*Pbkc) 4 Mg Gum PO 4 mg Q1H PRN Administration Nicotine Cravings Ondansetron HCl 4 mg 03/23/25 14:54 03/24/25 16:43 Ondansetron Inj 4 Mg/2 Ml Vial IV PUSH 4 mg Q4H PRN Administration Nausea Polyethylene Glycol 17 gm 03/23/25 15:35 03/25/25 09:26 Polyethylene Glycol 3350 17 Gm Powd.Pack PO 17 gm QAM CESAR Administration Prazosin HCl 1 mg 03/23/25 21:00 03/24/25 20:39 Prazosin Hcl 1 Mg Capsule PO 1 mg QHS CESAR Administration Pregabalin 150 mg 03/23/25 21:00 03/25/25 09:26 Pregabalin (*Crx) 75 Mg Capsule PO 150 mg Q12H CESAR Administration Quetiapine Fumarate 200 mg 03/24/25 21:00 03/24/25 20:40 Quetiapine Fumarate 100 Mg Tablet PO 200 mg QHS CESAR Administration Topiramate 50 mg 03/23/25 21:00 03/25/25 09:26 Topiramate 25 Mg Tablet PO 50 mg Q12H CESAR Administration Radiology Results: ITS Impressions Head CT 03/23/25 12:08 IMPRESSION: 1. No acute intracranial findings. Labs Labs: Laboratory Results - last 24 hr 03/25/25 05:24 WBC 5.2 RBC 3.84 L Hgb 11.2 L Hct 34.8 L MCV 90.6 MCH 29.2 MCHC 32.2 RDW 13.8 Plt Count 295 MPV 8.6 Sodium 131 L Potassium 4.3 Chloride 105 Carbon Dioxide 23 Anion Gap 3 L BUN 17 Creatinine 1.01 H Estim Creat Clear Calc 66 Estimated GFR 59 Glucose 80 Calcium 8.3 L Magnesium 1.7 Total Bilirubin 0.4 AST 25 ALT 20 Alkaline Phosphatase 92 Total Protein 7.2 Albumin 3.4 L
[2025-03-25] MEDS: MELATONIN 5 MG TABLET PO (20:42)
[2025-03-25] MEDS: PRAZOSIN HCL 1 MG CAPSULE PO (20:43)
[2025-03-26] VITALS (9 sets, daily range): BP systolic 102–129; BP diastolic 64–87; PULSE 49–71; RESP 16–18; TEMP 36.1–36.7; O2SAT 98–100
[2025-03-26 06:04] LABS: Hematocrit 35.2 % (37.0-47.0); Hemoglobin 11.5 g/dL (12.0-15.0); Mean Corpuscular HGB Conc 32.7 g/dl (32-36); Mean Corpuscular Hemoglobin 29.5 pg (26-34); Mean Corpuscular Volume 90.3 fl (80-100); Platelet Count Result 299 k/mm3 (150-375); Red Blood Count 3.90 M/mm3 (4.2-5.4); White Blood Count 5.2 K/mm3 (4.5-10.0)
[2025-03-26 06:22] LABS: Alanine Aminotransferase 20 U/L (6-35); Albumin Level 3.4 g/dL (3.5-5.1); Alkaline Phosphatase 97 U/L (38-126); Anion Gap 4 mmol/L (4-12); Aspartate Amino Transferase 29 U/L (14-36); Bilirubin,Total 0.3 mg/dL (0.2-1.3); Blood Urea Nitrogen 16 mg/dL (7-17); Calcium 8.4 mg/dL (8.4-10.2); Carbon Dioxide 22 mmol/L (22-30); Chloride 101 mmol/L (98-107); Estimated CRCL calculation 82 ml/min; Estimated Glomerular Filt Rate > 60; Glucose 88 mg/dL (65-110); Magnesium 1.7 mg/dL (1.6-2.3); Potassium 4.1 mmol/L (3.4-5.0); Sodium 127 mmol/L (137-145); Total Protein 7.2 g/dL (6.3-8.2)
[2025-03-26] MEDS: TOPIRAMATE 25 MG TABLET 50 MG PO ×2 (08:53→20:15)
[2025-03-26] MEDS: PREGABALIN (*CRX) 75 MG CAPSULE 150 MG PO ×2 (08:53→20:16)
[2025-03-26] MEDS: LURASIDONE HCL 40 MG TABLET PO (08:53)
[2025-03-26] MEDS: DICLOFENAC SODIUM 1% 100 GM GEL (*BKC) 1 APPLIC TOPICAL ×2 (08:54→16:34)
[2025-03-26] MEDS: NICOTINE (*PBKC) 14 MG PATCH 1 PATCH TRANSDERM (08:54)
[2025-03-26] MEDS: DOCUSATE SODIUM 100 MG CAPSULE PO ×2 (08:54→20:17)
[2025-03-26] MEDS: NICOTINE (*PBKC) 4 MG GUM PO ×3 (09:01→20:17)
--- NOTE | 2025-03-26 16:38 | PM.IMPN2 ---
Assessment and Plan Assessment and Plan (1) Seizure disorder: Code(s): G40.909 - Epilepsy, unspecified, not intractable, without status epilepticus Status: Acute Assessment and Plan: Patient has had 3 breakthrough seizures, one on Friday 03/16 and 2 the day of admission 03/23. she has a history of seizures, tonic clonic, no precipitating TBI and has been present for years. On topiramate and carbamazepine, reports compliance. Typically precipitated by stress, introduction of a new medication /substance, or noncompliance to her medications previously due to her methamphetamine use. Currently at [facility] for rehab, last use 03/02. no longer postictal. - continue carbamazepine and topiramate, awaiting further recommendations per Neurology - carbamazepine and topiramate levels pending - seizure precautions - no leukocytosis concerning for infection precipitating breakthrough seizures Plan patient with recurrent seizures seen by the neurologist recommended to [facility], to further evaluate patient will need EEG, EEG is pending, she denies any seizures while in the hospital, will follow up and further recommendation to follow. patient is also complaints of constipation, patient was given miralax and Colace no relief, give suppository and patient had BM, patient is clinically stable, waiting for EEG, will follow. Diet: heart healthy GI Prophylaxis: n/a DVT Prophylaxis: SCDs IV fluids: NS 100 mL/hr Lines/Tubes: pIV Code Status: full code Subjective Date/time seen: 03/26/25 16:38 Interval history: Seizures H&P-Narrative: 49 y/o F with PMH of methamphetamine use, seizure disorder, and remote history of alcohol abuse presents here with multiple seizures. The patient presents here [facility] for further evaluation of seizure activity. She reports she had a seizure on Tuesday x1 and then had 2 seizures today. She reports the facility staff reported to her that the 1st one lasted for around 1 minute and the 2nd one lasted for a few minutes. Her seizures are tonic clonic. She was postictal after the 2nd seizure and arrived mildly confused. Now A&O x4. She reports her seizures previously have been precipitated by medication noncompliance or stress or introduction of a new medication/substance. She used to see a neurologist in [place], however has not seen them for some time. She reports a recent medication change, Seroquel was discontinued and she was placed on Latuda. She is currently at [facility] for rehab services for meth use, last use 03/02. Currently denies any injury, oral trauma, fever, chills, body aches, URI like symptoms, headache, focal numbness, focal weakness. She does report increased anxiety the due to concern she will not be able to go back to her rehab facility. She also reports a few days of constipation for which she took MiraLax last night without results. No further complaints. Initial VS at presentation: 98.2? F, HR 70, R 20, 135/95, and 100% on RA. ED workup showed: No leukocytosis, hemoglobin 11.5, normal coags, sodium 127, creatinine 0.78 and GFR >60, initial troponin negative, UA showed trace leuk esterase otherwise unremarkable. UDS negative. Carbamazepine and topiramate levels pending. Head CT showed no acute intracranial findings. patient with recurrent seizures seen by the neurologist recommended to [facility], to further evaluate patient will need EEG, EEG is pending, she denies any seizures while in the hospital, will follow up and further recommendation to follow. patient is also complaints of constipation, patient was given miralax and Colace no relief, give suppository and patient had BM, patient is clinically stable, waiting for EEG, will follow. Review of Systems Review of Systems: All systems reviewed & are unremarkable except as noted in HPI and below Exam Narrative: Patient is comfortable, NAD HEENT: eyes are clear and none icteric LUNGS:CTA HEART: RR S1S2 ABD: BS+, Soft and nontender Lower extremities: no edema SKIN: nonjaundiced Neuro: grossly intact. Objective Data Vital Signs Vital Signs: Vital Signs - 24 hr 03/25/25 20:00 03/25/25 20:00 03/25/25 22:00 Temperature 36.2 C L Pulse Rate 68 60 66 Respiratory Rate 16 18 Blood Pressure 100/50 L Pulse Oximetry 98 97 Oxygen Delivery Room Air 03/26/25 00:00 03/26/25 04:00 03/26/25 06:00 Temperature 36.1 C L Pulse Rate 64 57 L 49 L Respiratory Rate 18 Blood Pressure 102/64 Pulse Oximetry 100 Oxygen Delivery 03/26/25 08:00 03/26/25 08:55 03/26/25 12:00 Temperature Pulse Rate 58 L 66 Respiratory Rate Blood Pressure Pulse Oximetry Oxygen Delivery Room Air 03/26/25 14:00 03/26/25 16:00 Temperature 36.7 C Pulse Rate 71 65 Respiratory Rate 16 Blood Pressure 117/87 Pulse Oximetry 100 Oxygen Delivery Intake/Output Intake/Output: Intake & Output 03/23/25 03/24/25 03/25/25 03/26/25 23:59 23:59 23:59 23:59 Intake Total 240 3940 2840 1750 Output Total 1 600 Balance 240 3939 2240 1750 Meds/Results Medications: Active Medications Generic Name Dose Route Start Last Admin Trade Name Freq PRN Reason Stop Dose Admin Acetaminophen 650 mg 03/23/25 15:36 03/25/25 06:25 Acetaminophen 325 Mg Tablet PO 650 mg Q6H PRN Administration Mild Pain (1-3) or Fever Bisacodyl 10 mg 03/25/25 14:10 Bisacodyl 10 Mg Suppository RECTAL QAM PRN Constipation Buspirone HCl 10 mg 03/24/25 09:00 03/26/25 16:33 Buspirone Hcl 10 Mg Tablet PO 10 mg BID CESAR Administration Carbamazepine 400 mg 03/24/25 09:00 03/26/25 08:53 Carbamazepine Xr 200 Mg Tab.Er.12h PO 400 mg Q12HR CESAR Administration Diclofenac Sodium 1 applic 03/24/25 17:00 03/26/25 16:34 Diclofenac Sodium 1% 100 Gm Gel (*Bkc) TOPICAL 1 applic QID CESAR Administration Docusate Sodium 100 mg 03/23/25 21:00 03/26/25 08:54 Docusate Sodium 100 Mg Capsule PO 100 mg Q12HR CESAR Administration Hydroxyzine HCl 25 mg 03/23/25 21:54 03/26/25 16:33 Hydroxyzine Hcl 25 Mg Tablet PO 25 mg Q4H PRN Administration Anxiety Lurasidone HCl 40 mg 03/24/25 08:00 03/26/25 08:53 Lurasidone Hcl 40 Mg Tablet PO 40 mg DAILY@0800 CESAR Administration Melatonin 5 mg 03/24/25 21:00 03/25/25 20:42 Melatonin 5 Mg Tablet PO 5 mg QHS CESAR Administration Multivitamins Therapeutic 1 tablet 03/23/25 21:54 Multivitamins Therapeutic Tab (*Bkc) PO DAILY PRN PATIENT REQUEST Nicotine 1 patch 03/24/25 09:00 12/09/25 08:54 Nicotine (*Pbkc) 14 Mg Patch TRANSDERM 1 patch DAILY CESAR Administration Nicotine Polacrilex 4 mg 03/23/25 22:26 03/26/25 16:34 Nicotine (*Pbkc) 4 Mg Gum PO 4 mg Q1H PRN Administration Nicotine Cravings Ondansetron HCl 4 mg 03/23/25 14:54 03/24/25 16:43 Ondansetron Inj 4 Mg/2 Ml Vial IV PUSH 4 mg Q4H PRN Administration Nausea Polyethylene Glycol 17 gm 03/23/25 15:35 03/26/25 08:53 Polyethylene Glycol 3350 17 Gm Powd.Pack PO 17 gm QAM CESAR Administration Prazosin HCl 1 mg 03/23/25 21:00 03/25/25 20:43 Prazosin Hcl 1 Mg Capsule PO 1 mg QHS CESAR Administration Pregabalin 150 mg 03/23/25 21:00 03/26/25 08:53 Pregabalin (*Crx) 75 Mg Capsule PO 150 mg Q12H CESAR Administration Quetiapine Fumarate 200 mg 03/24/25 21:00 03/25/25 20:43 Quetiapine Fumarate 100 Mg Tablet PO 200 mg QHS CESAR Administration Topiramate 50 mg 03/23/25 21:00 03/26/25 08:53 Topiramate 25 Mg Tablet PO 50 mg Q12H CESAR Administration Radiology Results: ITS Impressions Head CT 03/23/25 12:08 IMPRESSION: 1. No acute intracranial findings. Labs Labs: Laboratory Results - last 24 hr 03/23/25 03/26/25 11:48 05:19 WBC 5.2 RBC 3.90 L Hgb 11.5 L Hct 35.2 L MCV 90.3 MCH 29.5 MCHC 32.7 RDW 13.8 Plt Count 299 MPV 8.9 Sodium 127 L Potassium 4.1 Chloride 101 Carbon Dioxide 22 Anion Gap 4 BUN 16 Creatinine 0.80 Estim Creat Clear Calc 82 Estimated GFR > 60 Glucose 88 Calcium 8.4 Magnesium 1.7 Total Bilirubin 0.3 AST 29 ALT 20 Alkaline Phosphatase 97 Total Protein 7.2 Albumin 3.4 L Topiramate 1.8 L Quality VTE Prophylaxis VTE prophylaxis: mechanical ordered
[2025-03-26] MEDS: ACETAMINOPHEN 325 MG TABLET 650 MG PO (19:23)
[2025-03-26] MEDS: ONDANSETRON INJ 4 MG/2 ML VIAL IV PUSH (19:23)
[2025-03-26] MEDS: PRAZOSIN HCL 1 MG CAPSULE PO (20:15)
[2025-03-26] MEDS: MELATONIN 5 MG TABLET PO (20:17)
[2025-03-27] VITALS: PULSE 58
[2025-03-27 04:00] VITALS: PULSE 46
[2025-03-27 05:04] VITALS: BP 103/59; PULSE 48; RESP 12; TEMP 36.1; O2SAT 97
[2025-03-27 06:32] LABS: Hematocrit 36.3 % (37.0-47.0); Hemoglobin 11.8 g/dL (12.0-15.0); Mean Corpuscular HGB Conc 32.5 g/dl (32-36); Mean Corpuscular Hemoglobin 29.4 pg (26-34); Mean Corpuscular Volume 90.5 fl (80-100); Platelet Count Result 287 k/mm3 (150-375); Red Blood Count 4.01 M/mm3 (4.2-5.4); White Blood Count 5.6 K/mm3 (4.5-10.0)
[2025-03-27 06:43] LABS: Alanine Aminotransferase 21 U/L (6-35); Albumin Level 3.6 g/dL (3.5-5.1); Alkaline Phosphatase 95 U/L (38-126); Anion Gap 5 mmol/L (4-12); Aspartate Amino Transferase 26 U/L (14-36); Bilirubin,Total 0.3 mg/dL (0.2-1.3); Blood Urea Nitrogen 17 mg/dL (7-17); Calcium 8.5 mg/dL (8.4-10.2); Carbon Dioxide 21 mmol/L (22-30); Chloride 100 mmol/L (98-107); Estimated CRCL calculation 78 ml/min; Estimated Glomerular Filt Rate > 60; Glucose 83 mg/dL (65-110); Magnesium 1.7 mg/dL (1.6-2.3); Potassium 4.2 mmol/L (3.4-5.0); Sodium 126 mmol/L (137-145); Total Protein 7.4 g/dL (6.3-8.2)
[2025-03-27 08:00] VITALS: PULSE 51
[2025-03-27] MEDS: NICOTINE (*PBKC) 14 MG PATCH 1 PATCH TRANSDERM (08:46)
[2025-03-27] MEDS: LURASIDONE HCL 40 MG TABLET PO (08:46)
[2025-03-27] MEDS: TOPIRAMATE 25 MG TABLET 50 MG PO (08:46)
[2025-03-27] MEDS: DICLOFENAC SODIUM 1% 100 GM GEL (*BKC) 1 APPLIC TOPICAL ×2 (08:46→13:10)
[2025-03-27] MEDS: DOCUSATE SODIUM 100 MG CAPSULE PO (08:46)
[2025-03-27] MEDS: PREGABALIN (*CRX) 75 MG CAPSULE 150 MG PO (08:46)
[2025-03-27] MEDS: NICOTINE (*PBKC) 4 MG GUM PO (08:49)
[2025-03-27 12:00] VITALS: PULSE 63
--- NOTE | 2025-03-27 12:03 | P.DS_ITS ---
DS: Admitting Diagnosis Discharge Date 03/27/25 Admitting Diagnosis Seizures DS: Discharge Diagnosis Discharge Diagnosis (1) Seizure disorder: Code(s): G40.909 - Epilepsy, unspecified, not intractable, without status epilepticus Status: Acute Assessment and Plan: Patient has had 3 breakthrough seizures, one on Friday 03/16 and 2 the day of admission 03/23. she has a history of seizures, tonic clonic, no precipitating TBI and has been present for years. On topiramate and carbamazepine, reports compliance. Typically precipitated by stress, introduction of a new medication /substance, or noncompliance to her medications previously due to her methamphetamine use. Currently at [facility] for rehab, last use 03/02. no longer postictal. - continue carbamazepine and topiramate, awaiting further recommendations per Neurology - carbamazepine and topiramate levels pending - seizure precautions - no leukocytosis concerning for infection precipitating breakthrough seizures Plan patient with recurrent seizures seen by the neurologist recommended to [facility], to further evaluate patient will need EEG, EEG is pending, she denies any seizures while in the hospital, will follow up and further recommendation to follow. patient is also complaints of constipation, patient was given miralax and Colace no relief, give suppository and patient had BM, patient is clinically stable, waiting for EEG, will follow. DS: Summary Hospital Course Hospital Course: patient with recurrent seizures seen by the neurologist recommended to [facility], to further evaluate patient will need EEG, EEG is pending, she denies any seizures while in the hospital, will follow up and further recommendation to follow. patient is also complaints of constipation, patient was given miralax and Colace no relief, give suppository and patient had BM, patient is clinically stable, waiting for EEG, will follow. patent remains clinically stable, no seizures wh ile in the hospital, will discharge patient today to rehab. Time Spent with Patient Time attestation: Total time spent providing and/or coordinating discharge services: Exam Narrative: Patient is comfortable, NAD HEENT: eyes are clear and none icteric LUNGS:CTA HEART: RR S1S2 ABD: BS+, Soft and nontender Lower extremities: no edema SKIN: nonjaundiced Neuro: grossly intact. DS: Data Data Completed and Pending Labs on day of discharge: Labs from last 24 hours 03/27/25 03/23/25 06:04 11:48 WBC 5.6 RBC 4.01 L Hgb 11.8 L Hct 36.3 L MCV 90.5 MCH 29.4 MCHC 32.5 RDW 13.3 Plt Count 287 MPV 8.9 Sodium 126 L Potassium 4.2 Chloride 100 Carbon Dioxide 21 L Anion Gap 5 BUN 17 Creatinine 0.85 Estim Creat Clear Calc 78 Estimated GFR > 60 Glucose 83 Calcium 8.5 Magnesium 1.7 Total Bilirubin 0.3 AST 26 ALT 21 Alkaline Phosphatase 95 Total Protein 7.4 Albumin 3.6 Topiramate 1.8 L Discharge Plan Discharge Attending physician on discharge: Jhonatan Garay Consulting providers: Everardo Garrison; Matt Oconnell; Randy Colbert; Namrata Cote; Antwan Hanson Discharging Clinician: Jhonatan Garay Patient Disposition: Home Activity: as tolerated Diet: heart healthy Discharge Instructions: Patient to follow up with her neurologist and primary care provider as soon as possible, patient is instructed if any symptoms redevelop to go to nearest ER Patient Instructions: Antibiotic Form Patient Language: Maori Stand Alone Forms: General Discharge Information Follow-up/Referrals: Matt Oconnell MD [Physician, Neurology] PHYSICIAN,ELECTROPHONIC ENGINEER [Primary Care Provider, Internal Medicine] Discharge Medications: New nicotine 14 mg/24 hr Patch 24 Hour 1 patch transdermal DAILY Qty: 28 0RF polyethylene glycol 3350 [Miralax] 17 gram Powder In Packet 17 g PO QAM Qty: 30 0RF docusate sodium 100 mg Capsule 100 mg PO Q12HR Qty: 30 0RF Continued pregabalin 150 mg capsule 150 mg PO Q12H topiramate 50 mg tablet 50 mg PO Q12H buspirone 10 mg tablet 10 mg PO BID prazosin 1 mg capsule 1 mg PO QHS lurasidone 40 mg tablet 40 mg PO DAILY@0800 Rx Instructions: WITH FOOD quetiapine 200 mg tablet 200 mg PO QHS melatonin 5 mg tablet 5 mg PO HS topiramate 50 mg tablet 50 mg PO BID pregabalin 50 mg capsule 50 mg PO BID Equetro 200 mg capsule, ER multiphase 12 hr 400 mg PO Q12H multivitamin Tablet 1 tablet PO DAILY PRN (Reason: PATIENT REQUEST) hydroxyzine HCl 25 mg tablet 25 mg PO Q4H PRN (Reason: anxiety) Rx Instructions: 1-2 TABLETS nicotine (polacrilex) 4 mg lozenge 4 mg buccal Q1H PRN (Reason: nicotine cravings) Rx Instructions: do not exceed more than 20 marlee per day nicotine 21 mg/24 hr patch 24 hour 1 patch transdermal DAILY Discontinued carbamazepine 200 mg tablet extended release 12 hr 200 mg PO Q12H buspirone 5 mg tablet 5 mg PO BID melatonin 5 mg capsule 5 mg PO QHS Date of admission: 03/25/25 12:17 Primary Care Provider: PHYSICIAN,ELECTROPHONIC ENGINEER Admitting Provider: Jhonatan Garay Attending physician on admission: Jhonatan Garay Condition: Stable
[2025-03-27 13:42] VITALS: BP 119/64; PULSE 72; RESP 20; TEMP 36.4; O2SAT 100
--- NOTE | 2025-04-02 12:15 | WPDNEUROLOGY ---
Neurology EEG Report General Information Date of Study: 03/27/25 TEST EEG DIAGNOSIS Witnessed seizure activity. CONDITION OF RECORDING Awake, drowsy and sleep. EEG NUMBER [id number] CLINICAL HISTORY 49 years old female who came to the hospital on 03/23 for further evaluation of seizure activity. Patient had 1 seizure on Tuesday and 2 seizures on Tuesday. Her seizures are tonic-clonic by description. She was postictal after the 2nd seizure and arrived mildly confused. She reports her seizure previously have been precipitated by medication noncompliance or stress or introduction of a new medication or else substance. 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 EEG DESCRIPTION Basic resting occipital frequency consists of low to medium voltage 9 to 11 hertz per 2nd alpha admixed with low-voltage 15 to 18 hertz per 2nd beta activity. Alpha asymmetrically blocked with eyes opening. During drowsiness low-voltage beta activity seen admixed with alpha and theta activity evolving into bilateral deeper stages of sleep with symmetrical sleep spindles photic stimulation produced normal driving. Hyperventilation produced normal and symmetrical buildup. Non paroxysmal. Nonfocal. Nonlateralizing. IMPRESSION No significant abnormalities noted.
== END 2025-03-27 16:10 | disposition home or self-care (01) | DRG 101 ==
LOC: ANHED 13:06 → ANH3MED 15:31
PROVIDERS: Student in an Organized Health Care Education/Training Program; Admitting Provider Family Medicine; Emergency Provider Emergency Medicine; Visit Provider Family Medicine
DX: G40.409 Other generalized epilepsy and epileptic syndromes, not intractable, without status epilepticus (principal); K59.00 Constipation, unspecified; F41.9 Anxiety disorder, unspecified; Z91.199 Patient's noncompliance with other medical treatment and regimen due to unspecified reason
CPT/HCPCS: 36415; 70450; 80048; 80053; 80156; 80201; 80307; 81001; 81025; 83605; 83735; 84484; 85025; 85027; 85610; 85730; 93005; 95816; 96374; 96375; 96376; 99285; A9270; G0378; J1885; J2405; J7030